=== PATIENT | male | born 1965 | race Hispanic/Latino ===

== ENCOUNTER 2019-03-27 16:29 | Emergency (ER) | payer BC ==
[2019-03-27] MEDS ORDERED: MORPHINE SULFATE 4 MG/1ML SYG ONE (17:25)
[2019-03-27] MEDS ORDERED: ONDANSETRON HCL 4 MG/2 ML VIAL ONE (17:25)
[2019-03-27] MEDS ORDERED: SODIUM CHLORIDE 0.9% 1000ML 1,000 ML IV ONE (17:27)
[2019-03-27 17:37] LABS: BASOPHILS % (AUTO) 0.8 % (0.0-5.0); EOSINOPHILS % (AUTO) 5.3 % (0.0-8.0); HEMATOCRIT 44.3 % (42-54); LYMPHOCYTES % (AUTO) 34.7 % (21.0-51.0); MEAN CORPUSCULAR HEMOGLOBIN 30.9 pg (27.0-33.0); MEAN CORPUSCULAR VOLUME 88.4 fL (79-99); MONOCYTES % (AUTO) 12.3 % (3.0-13.0); NEUTROPHILS % (AUTO) 46.7 % (40.0-77.0); PLATELET COUNT (AUTO) 196 K/uL (130-400); RED BLOOD CELL COUNT(AUTO) 5.01 MIL/uL (4.50-6.20); RED CELL DISTRIBUTION WIDTH 12.3 % (11.0-15.5)
[2019-03-27 17:45] LABS: APPEARANCE,URINE Clear (CLEAR); BILIRUBIN,URINE Negative (NEGATIVE); COLOR,URINE Yellow (YELLOW); GLUCOSE, URINE (UA) >=1000 mg/dL (NEGATIVE); KETONES,URINE Negative (NEGATIVE); LEUKOCYTE ESTERASE ,URINE Negative (NEGATIVE); NITRATE,URINE Negative (NEGATIVE); OCCULT BLOOD,URINE Negative (NEGATIVE); PH,URINE 5.5 (5.0-8.0); PROTEIN,URINE Negative (NEGATIVE)
[2019-03-27 17:48] LABS: CREATININE 0.9 mg/dL (0.5-1.5); POTASSIUM 3.6 mmol/L (3.5-5.1)
[2019-03-27 17:51] LABS: BACTERIA,URINE Rare /HPF (None Seen); RBC,URINE None Seen /HPF (0-1); SQUAMOUS EPITHELIAL CELL,UR Rare /HPF (0-2); WBC,URINE None Seen /HPF (0-1)
[2019-03-27 17:52] LABS: ALBUMIN 3.7 g/dL (3.5-5.0); BILIRUBIN,TOTAL 0.6 mg/dL (0.2-1.0); TOTAL PROTEIN, SERUM 7.7 g/dL (6.0-8.3)
[2019-03-27] MEDS ORDERED: IOHEXOL-350 75 ML VIAL IV ONE (17:58)
[2019-03-27] MEDS ORDERED: DICYCLOMINE HCL 20 MG TAB ONE (19:31)
== END 2019-03-27 20:02 | disposition home or self-care (01) ==
LOC: EDH 16:29
DX: K59.00 Constipation, unspecified (principal); R11.0 Nausea; E11.9 Type 2 diabetes mellitus without complications; E78.00 Pure hypercholesterolemia, unspecified
CPT/HCPCS: 36415; 74177; 76705; 80053; 81001; 83690; 85025; 96374; 96375; 99285; J2270; J2405; J7030; Q9967

== ENCOUNTER 2022-09-06 13:59 | Emergency (ER) | payer BC, OTHER ==
[~2022-09-06] VITALS: Ht 167.6 cm; Wt 77.1 kg
[2022-09-06] MEDS ORDERED: ONDANSETRON 4MG INJ ONE (14:05)
[2022-09-06 14:22] LABS: BASOPHILS % (AUTO) 0.9 % (0.0-5.0); EOSINOPHILS % (AUTO) 1.2 % (0.0-8.0); HEMATOCRIT 45.8 % (42-54); LYMPHOCYTES % (AUTO) 21.8 % (21.0-51.0); MEAN CORPUSCULAR HEMOGLOBIN 30.8 pg (27.0-33.0); MEAN CORPUSCULAR HGB CONC 34.5 g/dL (32.0-36.0); MEAN CORPUSCULAR VOLUME 89.3 fL (79-99); MONOCYTES % (AUTO) 5.5 % (3.0-13.0); NEUTROPHILS % (AUTO) 70.4 % (40.0-77.0); PLATELET COUNT (AUTO) 228 K/uL (130-400); RED BLOOD CELL COUNT(AUTO) 5.13 MIL/uL (4.50-6.20); RED CELL DISTRIBUTION WIDTH 12.1 % (11.0-15.5); WHITE BLOOD COUNT (AUTO) 8.1 K/uL (4.8-10.8)
[2022-09-06] MEDS ORDERED: ONDANSETRON 4MG INJ IVP ONE (14:30)
[2022-09-06] MEDS ORDERED: MECLIZINE HCL 25 MG TABLET PO ONE (14:30)
[2022-09-06] MEDS ORDERED: FAMOTIDINE 20MG VIAL IV ONE (14:30)
[2022-09-06] MEDS ORDERED: METOCLOPRAMIDE 10 MG/2 ML VIAL IVP ONE (14:30)
[2022-09-06 14:31] LABS: CREATININE 0.8 mg/dL (0.5-1.5)
[2022-09-06 14:40] LABS: ALBUMIN 4.4 g/dL (3.5-5.0)
[2022-09-06] MEDS ORDERED: IOHEXOL-350 75 ML VIAL IV ONE (14:55)
[2022-09-06] MEDS ORDERED: PROMETHAZINE HCL 25 MG/ML 1ML AMPULE IM ONE (15:30)
[2022-09-06 16:47] VITALS: BP 129/57
[2022-09-06] MEDS ORDERED: ONDA4TAB10 PO (16:59)
[2022-09-06] MEDS ORDERED: MECL-160 PO (16:59)
== END 2022-09-06 17:31 | disposition home or self-care (01) ==
LOC: EDH 13:59
DX: R42 Dizziness and giddiness (principal); E11.65 Type 2 diabetes mellitus with hyperglycemia; R07.89 Other chest pain; R11.2 Nausea with vomiting, unspecified
CPT/HCPCS: 99285; 70450; 96374; 71045; 96375; 84484; 80053; 85025; 36415; 71275; 93005; 96372; J3490; J2550; J2405; J2765; Q9967

== ENCOUNTER → 2022-10-09 | Outpatient (CLI) | payer BC ==
[~2022-10-09] MED LIST: GADOTERATE MEGLUMINE 10 MMOL/20 ML VIAL IV ONE; MECL-160 PO; ONDA4TAB10 PO
== END | disposition home or self-care (01) ==
LOC: RAH 10:00
PROVIDERS: ATTEND Family Medicine
DX: G93.89 Other specified disorders of brain (principal); R42 Dizziness and giddiness
CPT/HCPCS: 70553; A9575

== ENCOUNTER → 2022-10-17 | Outpatient (CLI) | payer BC ==
[~2022-10-17] MED LIST changes: -GADOTERATE MEGLUMINE 10 MMOL/20 ML VIAL IV ONE
== END | disposition home or self-care (01) ==
LOC: RAH 07:27
PROVIDERS: ATTEND Family Medicine
DX: R90.89 Other abnormal findings on diagnostic imaging of central nervous system (principal); R26.81 Unsteadiness on feet
CPT/HCPCS: 70544; 70547

== ENCOUNTER → 2022-12-12 | Outpatient (CLI) | payer BC ==
[~2022-12-12] MED LIST changes: +GADOTERATE MEGLUMINE 10 MMOL/20 ML VIAL IV ONE
== END | disposition home or self-care (01) ==
LOC: RAH 08:03
PROVIDERS: ATTEND Family Medicine
DX: M48.02 Spinal stenosis, cervical region (principal); R27.0 Ataxia, unspecified; I63.9 Cerebral infarction, unspecified; M47.812 Spondylosis without myelopathy or radiculopathy, cervical region; M50.222 Other cervical disc displacement at C5-C6 level
CPT/HCPCS: 72156; A9575